=== PATIENT | female | born 1960 | race African-American/Black ===

== ENCOUNTER 2017-04-12 09:18 | Emergency (ER) | payer OTHER ==
[~2017-04-12] VITALS: Ht 162.6 cm; Wt 81.0 kg
[~2017-04-12 09:18] MED LIST: ATEN50TA PO; METF850T2 PO
[2017-04-12 10:27] LABS: GLUCOSE,POINT OF CARE 119 MG/DL (70-110)
[2017-04-12] MEDS ORDERED: IBUPROFEN 600 MG TABLET PO ONE (10:30)
[2017-04-12 10:40] LABS: BASOPHILS # (AUTO) 0.03 K/uL (0.00-0.20); BASOPHILS % (AUTO) 0.5 % (0.0-2.0); EOSINOPHILS % (AUTO) 1.79 % (1.0-6.0); HEMATOCRIT 33.5 % (36-46); LYMPHOCYTES # (AUTO) 1.8 K/uL (1.0-4.8); LYMPHOCYTES % (AUTO) 32.8 % (22.0-44.0); MEAN CORPUSCULAR HEMOGLOBIN 29.7 pg (26.0-34.0); MEAN CORPUSCULAR HGB CONC 32.9 G/dL (31.0-37.0); MEAN CORPUSCULAR VOLUME 90 fL (80-100); MONOCYTES # (AUTO) 0.4 K/uL (0.1-1.0); MONOCYTES % (AUTO) 7.9 % (2.0-9.0); NEUTROPHILS # (AUTO) 3.2 K/uL (1.8-7.7); PLATELET COUNT (AUTO) 176 K/uL (150-450); RED CELL DISTRIBUTION WIDTH 14.2 % (11.5-14.5); WHITE BLOOD COUNT (AUTO) 5.6 K/uL (4.5-11.0)
[2017-04-12 10:49] LABS: ANION GAP 5 mmol/L (8-16); CARBON DIOXIDE 30 mmol/L (22-29); CHLORIDE 106 mmol/L (98-107); CREATININE 0.96 mg/dL (0.60-1.30); GLOMERULAR FILTR. RATE CALC > 60 mL/min (>60); POTASSIUM 3.9 mmol/L (3.5-5.1); SODIUM SERUM 141 mmol/L (136-145); UREA NITROGEN, BLOOD 10 mg/dL (7-18)
[2017-04-12 10:56] LABS: ALANINE AMINOTRANSFERASE 21 U/L (12-78); ALBUMIN 3.6 g/dL (3.4-5.0); ASPARTATE AMINOTRANSFERASE 14 U/L (15-37); BILIRUBIN,TOTAL 0.3 mg/dL (0.1-1.0); TOTAL PROTEIN, SERUM 6.8 g/dL (6.4-8.2)
[2017-04-12 12:49] VITALS: BP 124/62
== END 2017-04-12 12:51 | disposition home or self-care (01) ==
LOC: EMS 09:19
DX: M25.572 Pain in left ankle and joints of left foot (principal); M25.571 Pain in right ankle and joints of right foot; R60.0 Localized edema; F17.210 Nicotine dependence, cigarettes, uncomplicated; E11.9 Type 2 diabetes mellitus without complications; I10 Essential (primary) hypertension
CPT/HCPCS: 82962; 85379; 93971; 99285

== ENCOUNTER 2017-07-21 15:12 | Emergency (ER) | payer OTHER ==
[~2017-07-21] VITALS: Ht 162.6 cm; Wt 77.7 kg
[2017-07-21] MEDS ORDERED: KETOROLAC TROMETHAMINE 60 MG/2 ML VIAL IM ONE (16:30)
[2017-07-21] MEDS ORDERED: HYDROCODONE/ACETAMINOPHEN 10-325 MG TABLET PO ONE (16:30)
[2017-07-21 16:54] VITALS: BP 142/65
[2017-07-21 21:03] LABS: GLUCOSE,POINT OF CARE 204 MG/DL (70-110)
== END 2017-07-21 17:41 | disposition home or self-care (01) ==
LOC: EMS 15:13
DX: S43.401A Unspecified sprain of right shoulder joint, initial encounter (principal); S20.211A Contusion of right front wall of thorax, initial encounter; E11.9 Type 2 diabetes mellitus without complications; I10 Essential (primary) hypertension; F17.210 Nicotine dependence, cigarettes, uncomplicated; W05.0XXA Fall from non-moving wheelchair, initial encounter; Y93.01 Activity, walking, marching and hiking; Y92.89 Other specified places as the place of occurrence of the external cause; Y99.8 Other external cause status
CPT/HCPCS: 71101; 73030; 73562; 82962; 96372; 99284; J1885

== ENCOUNTER 2020-04-30 15:24 | Emergency (ER) | payer OTHER ==
[~2020-04-30] VITALS: Ht 162.6 cm; Wt 77.3 kg
[~2020-04-30 15:24] MED LIST changes: +ATEN-72 PO; -ATEN50TA PO; +METF-445 PO; -METF850T2 PO
[2020-04-30 15:29] VITALS: BP 135/71
[2020-04-30] MEDS ORDERED: LISI-660 PO (15:29)
[2020-04-30] MEDS ORDERED: AMLO-257 PO (15:29)
[2020-04-30] MEDS ORDERED: PERCT PO (15:29)
[2020-04-30] MEDS ORDERED: IBUPROFEN 600 MG TABLET PO ONE (16:45)
[2020-04-30] MEDS ORDERED: CAPSAICIN 0.025% 60 GM CREAM TP ONE (16:45)
[2020-04-30] MEDS ORDERED: LISI-661 PO (16:50)
[2020-04-30] MEDS ORDERED: ALBU8HFA IH (16:50)
[2020-04-30] MEDS ORDERED: AMLO-258 PO (16:50)
[2020-04-30] MEDS ORDERED: METF-960 PO (16:50)
[2020-04-30] MEDS ORDERED: GABA800T9 PO (16:50)
[2020-04-30] MEDS ORDERED: LIDOCAINE 5% TRANSDERMAL PATCH TD ONE (17:00)
== END 2020-04-30 17:10 | disposition home or self-care (01) ==
LOC: EMS 15:30
DX: M25.562 Pain in left knee (principal); E11.65 Type 2 diabetes mellitus with hyperglycemia; I10 Essential (primary) hypertension; F17.210 Nicotine dependence, cigarettes, uncomplicated; Z79.84 Long term (current) use of oral hypoglycemic drugs; Z79.899 Other long term (current) drug therapy

== ENCOUNTER 2023-01-16 09:11 | Emergency (ER) | payer OTHER ==
[~2023-01-16] VITALS: Ht 162.6 cm; Wt 73.6 kg
[~2023-01-16 09:11] MED LIST changes: +ALBU18HF12 IH; +AMLO-258 PO; -ATEN-72 PO; +GABA800T9 PO; +LISI-893 PO; +METF-1211 PO; -METF-445 PO; +PERCT PO
[2023-01-16] MEDS ORDERED: SODIUM CHLORIDE 0.9% 1,000 ML IV ONE ×2 (10:30→12:00)
[2023-01-16] MEDS ORDERED: MORPHINE SULFATE 2 MG/ML SYRINGE IVP ONE (10:30)
[2023-01-16] MEDS ORDERED: ONDANSETRON HCL 4 MG/2 ML VIAL IVP ONE (10:30)
[2023-01-16 10:59] LABS: BASOPHILS % (AUTO) 0.9 % (0.0-2.0); HEMATOCRIT 41.1 % (36-46); HEMOGLOBIN 13.8 g/dL (12.0-16.0); LYMPHOCYTES # (AUTO) 2.9 K/uL (1.0-4.8); LYMPHOCYTES % (AUTO) 40.1 % (22.0-44.0); MEAN CORPUSCULAR HEMOGLOBIN 28.7 pg (26.0-34.0); MEAN CORPUSCULAR HGB CONC 33.5 G/dL (31.0-37.0); MEAN CORPUSCULAR VOLUME 86 fL (80-100); MONOCYTES # (AUTO) 0.5 K/uL (0.1-1.0); MONOCYTES % (AUTO) 7.2 % (2.0-9.0); NEUTROPHILS # (AUTO) 3.6 K/uL (1.8-7.7); NEUTROPHILS % (AUTO) 50.8 % (40.0-70.0); PLATELET COUNT (AUTO) 219 K/uL (150-450); RED CELL DISTRIBUTION WIDTH 14.1 % (11.5-14.5)
[2023-01-16 11:00] LABS: ANION GAP 4 mmol/L (8-16); CALCIUM, TOTAL 10.6 mg/dL (8.8-10.5); CARBON DIOXIDE 31 mmol/L (22-29); CHLORIDE 98 mmol/L (98-107); CREATININE 0.98 mg/dL (0.60-1.30); GLOMERULAR FILTR. RATE CALC > 60 mL/min (>60); GLUCOSE,RANDOM 284 mg/dL (70-110); POTASSIUM 3.8 mmol/L (3.5-5.1); SODIUM SERUM 133 mmol/L (136-145); UREA NITROGEN, BLOOD 23 mg/dL (7-18)
[2023-01-16 11:06] LABS: ALANINE AMINOTRANSFERASE 16 U/L (12-78); ALKALINE PHOSPHATASE 113 U/L (46-116); ASPARTATE AMINOTRANSFERASE 10 U/L (15-37); BILIRUBIN,TOTAL 0.4 mg/dL (0.1-1.0); LIPASE 101 U/L (73-393); TOTAL PROTEIN, SERUM 8.1 g/dL (6.4-8.2)
[2023-01-16 12:07] LABS: APPEARANCE,URINE CLEAR (CLEAR); BILIRUBIN,URINE NEGATIVE (NEGATIVE); GLUCOSE, URINE (UA) >=1000 mg/dL (NEGATIVE); KETONES,URINE NEGATIVE (NEGATIVE); LEUKOCYTE ESTERASE ,URINE NEGATIVE (NEGATIVE); NITRATE,URINE NEGATIVE (NEGATIVE); OCCULT BLOOD,URINE NEGATIVE (NEGATIVE); PH,URINE 5.5 (5.0-8.0); PROTEIN,URINE TRACE mg/dL (NEGATIVE); SPECIFIC GRAVITIY, URINE 1.035 (1.003-1.030); UROBILINOGEN,URINE <=1.0 mg/dL (<=1.0)
[2023-01-16 12:10] LABS: BACTERIA,URINE None Seen /HPF (None Seen); RBC,URINE 0-2 /HPF (0-2); SQUAMOUS EPITHELIAL CELL,UR Few /LPF (None Seen); WBC,URINE 0-2 /HPF (0-5)
[2023-01-16] MEDS ORDERED: SERT-438 PO (12:30)
[2023-01-16] MEDS ORDERED: ATOR40TA71 PO (12:30)
[2023-01-16] MEDS ORDERED: IBUP-1492 PO (12:53)
[2023-01-16] MEDS ORDERED: CYCL-448 PO (12:53)
[2023-01-16 13:31] VITALS: BP 138/72
== END 2023-01-16 13:33 | disposition home or self-care (01) ==
LOC: EMS 09:51
DX: R10.9 Unspecified abdominal pain (principal); E11.65 Type 2 diabetes mellitus with hyperglycemia; E83.52 Hypercalcemia; I10 Essential (primary) hypertension; F17.210 Nicotine dependence, cigarettes, uncomplicated; F10.90 Alcohol use, unspecified, uncomplicated
CPT/HCPCS: 99285; 74176; 96374; 96361; 96375; 80053; 81001; 82962; 83690; 85025; 36415; J2270; J2405; J7030

== ENCOUNTER 2024-01-22 14:52 | Emergency (ER) | payer OTHER ==
[~2024-01-22] VITALS: Ht 162.6 cm; Wt 68.2 kg
[~2024-01-22 14:52] MED LIST changes: +ATOR40TA71 PO; +CYCL-448 PO; +IBUP-1492 PO; -PERCT PO; +SERT-438 PO
[2024-01-22 15:00] VITALS: TEMP 98.7
[2024-01-22 15:15] LABS: GLUCOMETER DEV NAME(LOC) ER.6; GLUCOSE,POINT OF CARE 342 MG/DL (70-110)
[2024-01-22] MEDS: HYDROCODONE/ACETAMINOPHEN 5-325 MG TABLET PO ONE (16:15)
[2024-01-22] MEDS: KETOROLAC TROMETHAMINE 60 MG/2 ML VIAL IM ONE (16:16)
[2024-01-22] MEDS: INSULIN REGULAR, HUMAN 100 UNITS/ML SQ ONE (16:17)
[2024-01-22 18:00] VITALS: BP 142/88; PULSE 84; RESP 16
[2024-01-22] MEDS ORDERED: IBUP-1554 PO (18:19)
== END 2024-01-22 18:27 | disposition home or self-care (01) ==
LOC: EMS 14:52
DX: S39.012A Strain of muscle, fascia and tendon of lower back, initial encounter (principal); E11.65 Type 2 diabetes mellitus with hyperglycemia; I10 Essential (primary) hypertension; F17.210 Nicotine dependence, cigarettes, uncomplicated; V89.2XXA Person injured in unspecified motor-vehicle accident, traffic, initial encounter; Y93.89 Activity, other specified; Y92.89 Other specified places as the place of occurrence of the external cause; Y99.8 Other external cause status
CPT/HCPCS: 99284; 71045; 82962; 72040; 72070; 72100; 96372; J1815; J1885

== ENCOUNTER 2025-03-11 10:55 | Inpatient (IN) | payer OTHER ==
[~2025-03-11] VITALS: Ht 162.6 cm; Wt 74.2 kg
[2025-03-11 08:00] VITALS: PULSE 83
[~2025-03-11 10:55] MED LIST changes: +ASPI-1450 PO; +CARV12 PO; +CEPH-558 PO; -CYCL-448 PO; +GABA-1554 PO; -GABA800T9 PO; -IBUP-1492 PO; +INSU3INS3 SQ; -LISI-893 PO; +LOSA-417 PO; +SPIR-37 PO
[2025-03-11 11:05] VITALS: PULSE 124; RESP 33; O2SAT 100
[2025-03-11] MEDS: ASPIRIN 81 MG CHEWABLE TABLET PO ONE (11:07)
[2025-03-11] MEDS: NITROGLYCERIN 2% (1 GM=INCH) OINTMENT PACKET TP ONE (11:07)
[2025-03-11] MEDS: LORazepam 0.5 MG TABLET PO ONE (11:07)
[2025-03-11 11:18] LABS: BASOPHILS % (AUTO) 0.9 % (0.0-2.0); EOSINOPHILS % (AUTO) 1.4 % (1.0-6.0); HEMATOCRIT 45.1 % (36-46); HEMOGLOBIN 14.4 g/dL (12.0-16.0); LYMPHOCYTES # (AUTO) 5.2 K/uL (1.0-4.8); LYMPHOCYTES % (AUTO) 43.5 % (22.0-44.0); MEAN CORPUSCULAR HEMOGLOBIN 28.4 pg (26.0-34.0); MEAN CORPUSCULAR VOLUME 89 fL (80-100); MONOCYTES # (AUTO) 0.8 K/uL (0.1-1.0); MONOCYTES % (AUTO) 6.5 % (2.0-9.0); NEUTROPHILS # (AUTO) 5.7 K/uL (1.8-7.7); NEUTROPHILS % (AUTO) 47.7 % (40.0-70.0); PLATELET COUNT (AUTO) 174 K/uL (150-450); RED BLOOD CELL COUNT(AUTO) 5.08 MIL/uL (4.00-5.20); RED CELL DISTRIBUTION WIDTH 14.9 % (11.5-14.5); WHITE BLOOD COUNT (AUTO) 11.9 K/uL (4.5-11.0)
[2025-03-11] MEDS: NITROPRUSSIDE SODIUM 50 MG in DEXTROSE 5%-WATER 248 ML IV PRN (11:23)
[2025-03-11 11:27] LABS: ANION GAP 12 mmol/L (8-16); CALCIUM, TOTAL 9.5 mg/dL (8.8-10.5); CARBON DIOXIDE 27 mmol/L (22-29); CHLORIDE 103 mmol/L (98-107); CREATININE 1.03 mg/dL (0.60-1.30); GLOMERULAR FILTR. RATE CALC > 60 mL/min (>60); GLUCOSE,RANDOM 245 mg/dL (70-110); POTASSIUM 3.5 mmol/L (3.5-5.1); SODIUM SERUM 142 mmol/L (136-145); UREA NITROGEN, BLOOD 11 mg/dL (7-18)
[2025-03-11 11:33] LABS: CREATINE KINASE, TOTAL ONLY 53 U/L (26-192)
[2025-03-11 11:35] LABS: PROTHROMBIN TIME 10.7 SEC (9.4-11.6)
[2025-03-11 11:36] LABS: TROPONIN I-HIGH SENSITIVITY 156 ng/L (<51)
[2025-03-11 11:38] LABS: B-TYPE NATRIURETIC PEPTIDE 547 pg/mL (0-100)
[2025-03-11 11:51] LABS: PLATELET MORPHOLOGY COMMENT LARGE PLTS PRESENT
[2025-03-11] MEDS: FUROSEMIDE 20 MG/2 ML VIAL IVP ONE ×2 (12:04)
[2025-03-11] MEDS ORDERED: LORazepam 2 MG/ML VIAL IVP PRN (12:15)
[2025-03-11] MEDS ORDERED: ACETAMINOPHEN 325 MG TABLET PO PRN (12:15)
[2025-03-11] MEDS ORDERED: ONDANSETRON HCL 4 MG/2 ML VIAL IVP PRN (12:15)
[2025-03-11] MEDS ORDERED: OxyCODONE HCL/ACETAMINOPHEN 5-325 MG TABLET PO PRN (12:15)
[2025-03-11] MEDS ORDERED: DEXTROSE 50%-WATER 25 GM/50 ML SYRINGE IVP PRN (12:15)
[2025-03-11] MEDS ORDERED: CloNIDine HCL 0.1 MG TABLET PO PRN (12:30)
[2025-03-11] MEDS: AmLODIPine BESYLATE 10 MG TABLET PO SCH (12:43)
[2025-03-11 14:18] LABS: APPEARANCE,URINE CLEAR (CLEAR); BILIRUBIN,URINE NEGATIVE (NEGATIVE); COLOR,URINE COLORLESS (YELLOW); GLUCOSE, URINE (UA) 300-500 mg/dL (NEGATIVE); KETONES,URINE NEGATIVE (NEGATIVE); LEUKOCYTE ESTERASE ,URINE NEGATIVE (NEGATIVE); NITRATE,URINE NEGATIVE (NEGATIVE); OCCULT BLOOD,URINE NEGATIVE (NEGATIVE); PH,URINE 6.5 (5.0-8.0); PROTEIN,URINE 30-70 mg/dL (NEGATIVE); SPECIFIC GRAVITIY, URINE 1.007 (1.003-1.030); UROBILINOGEN,URINE <=1.0 mg/dL (<=1.0)
[2025-03-11 14:20] LABS: PH,URINE DRUG SCREEN 6.5 (5.0-8.0)
[2025-03-11 14:25] LABS: ALCOHOL, URINE DRUG SCREEN NEGATIVE (NEGATIVE); AMPHET/METH SCREEN,URINE NEGATIVE (NEGATIVE); BACTERIA,URINE None Seen /HPF (None Seen); BARBITURATE SCREEN, URINE NEGATIVE (NEGATIVE); BENZODIAZEPINES SCREEN,URINE NEGATIVE (NEGATIVE); CANNABINOID SCREEN,URINE NEGATIVE (NEGATIVE); COCAINE SCREEN,URINE POSITIVE (NEGATIVE); METHADONE SCREEN, URINE NEGATIVE (NEGATIVE); OPIATE SCREEN,URINE NEGATIVE (NEGATIVE); PHENCYCLIDINE SCREEN,URINE NEGATIVE (NEGATIVE); RBC,URINE None Seen /HPF (0-2); SQUAMOUS EPITHELIAL CELL,UR Few /LPF (None Seen); WBC,URINE None Seen /HPF (0-5)
[2025-03-11 16:00] VITALS: BP 160/83; PULSE 85; RESP 16; TEMP 98.1; O2SAT 96
[2025-03-11] MEDS: HEPARIN SODIUM,PORCINE 5,000 UNITS/ML VIAL SQ SCH (18:23)
[2025-03-11] MEDS: INSULIN LISPRO 100 UNITS/ML SQ PRN (18:24)
[2025-03-11 19:01] VITALS: PULSE 83
[2025-03-11 20:00] VITALS: BP 140/77; PULSE 78; RESP 17; TEMP 98.4; O2SAT 100
[2025-03-11 20:00] LABS: GLUCOMETER DEV NAME(LOC) ICUN.5; GLUCOSE,POINT OF CARE 289 MG/DL (70-110)
[2025-03-11] MEDS: DOCUSATE SODIUM 100 MG CAPSULE PO SCH (21:00)
[2025-03-11] MEDS: CHLORHEXIDINE GLUCONATE 2% TOWELETTE [2'S/6'S] TP SCH (21:18)
[2025-03-11 21:40] LABS: GLUCOMETER DEV NAME(LOC) ICU.S6; GLUCOSE,POINT OF CARE 213 MG/DL (70-110)
[2025-03-12] VITALS (7 sets, daily range): BP systolic 132–189; BP diastolic 72–134; PULSE 62–82; RESP 14–25; TEMP 97.7–98.5; O2SAT 96–100
[2025-03-12] MEDS: HydrALAZINE HCL 20 MG/ML VIAL IVP PRN (04:53)
[2025-03-12 06:10] LABS: BASOPHILS % (AUTO) 0.5 % (0.0-2.0); EOSINOPHILS % (AUTO) 1.7 % (1.0-6.0); HEMATOCRIT 39.9 % (36-46); HEMOGLOBIN 13.4 g/dL (12.0-16.0); LYMPHOCYTES # (AUTO) 2.1 K/uL (1.0-4.8); LYMPHOCYTES % (AUTO) 34.3 % (22.0-44.0); MEAN CORPUSCULAR HEMOGLOBIN 28.9 pg (26.0-34.0); MEAN CORPUSCULAR HGB CONC 33.7 G/dL (31.0-37.0); MEAN CORPUSCULAR VOLUME 86 fL (80-100); MONOCYTES # (AUTO) 0.4 K/uL (0.1-1.0); MONOCYTES % (AUTO) 7.2 % (2.0-9.0); NEUTROPHILS # (AUTO) 3.5 K/uL (1.8-7.7); NEUTROPHILS % (AUTO) 56.3 % (40.0-70.0); PLATELET COUNT (AUTO) 144 K/uL (150-450); RED BLOOD CELL COUNT(AUTO) 4.65 MIL/uL (4.00-5.20); RED CELL DISTRIBUTION WIDTH 14.2 % (11.5-14.5); WHITE BLOOD COUNT (AUTO) 6.2 K/uL (4.5-11.0)
[2025-03-12 06:28] LABS: ANION GAP 8 mmol/L (8-16); CALCIUM, TOTAL 9.6 mg/dL (8.8-10.5); CARBON DIOXIDE 28 mmol/L (22-29); CHLORIDE 103 mmol/L (98-107); CREATININE 0.79 mg/dL (0.60-1.30); GLOMERULAR FILTR. RATE CALC > 60 mL/min (>60); GLUCOSE,RANDOM 178 mg/dL (70-110); POTASSIUM 3.3 mmol/L (3.5-5.1); SODIUM SERUM 139 mmol/L (136-145); UREA NITROGEN, BLOOD 8 mg/dL (7-18)
[2025-03-12 06:50] LABS: GLUCOMETER DEV NAME(LOC) ICUN.5; GLUCOSE,POINT OF CARE 192 MG/DL (70-110)
[2025-03-12] MEDS ORDERED: POTASSIUM CHL 10 MEQ/WATER 50 ML IV PRN (09:00)
[2025-03-12] MEDS: ASPIRIN 81 MG CHEWABLE TABLET PO SCH (09:00)
[2025-03-12] MEDS: FAMOTIDINE 20 MG TABLET PO SCH (09:00)
[2025-03-12] MEDS: FUROSEMIDE 20 MG TABLET PO SCH (11:27)
[2025-03-12] MEDS: LOSARTAN POTASSIUM 50 MG TABLET PO SCH (11:27)
[2025-03-12] MEDS: POTASSIUM CHLORIDE 20 MEQ ER TABLET PO PRN (11:29)
[2025-03-12 12:35] LABS: GLUCOMETER DEV NAME(LOC) ICUN.5; GLUCOSE,POINT OF CARE 328 MG/DL (70-110)
[2025-03-12 18:05] LABS: GLUCOMETER DEV NAME(LOC) ICUN.5; GLUCOSE,POINT OF CARE 235 MG/DL (70-110)
[2025-03-13 03:56] LABS: GLUCOMETER DEV NAME(LOC) ICU.S6; GLUCOSE,POINT OF CARE 230 MG/DL (70-110)
[2025-03-13 04:24] VITALS: BP 157/81; PULSE 73; RESP 18; TEMP 98.1; O2SAT 97
[2025-03-13 05:31] LABS: GLUCOMETER DEV NAME(LOC) 5N.1D; GLUCOSE,POINT OF CARE 236 MG/DL (70-110)
[2025-03-13 07:06] LABS: MAGNESIUM 1.7 mg/dL (1.80-2.40)
[2025-03-13 07:10] LABS: HEMOGLOBIN A1C 11.1 % (3.8-5.6)
[2025-03-13 07:45] VITALS: BP 145/88; PULSE 75; RESP 18; TEMP 98.3; O2SAT 98
[2025-03-13] MEDS: MAGNESIUM OXIDE 400 MG TABLET PO ONE (12:03)
[2025-03-13 12:40] LABS: GLUCOMETER DEV NAME(LOC) 5N.2C; GLUCOSE,POINT OF CARE 320 MG/DL (70-110)
[2025-03-13 12:47] VITALS: BP 140/87; PULSE 82; RESP 18; TEMP 98.2; O2SAT 98
== END 2025-03-13 13:50 | disposition home or self-care (01) | DRG 194 ==
LOC: EMS 10:55 → EDH 12:49 → ICU 14:48 → 5S 03-12 22:35
PROVIDERS: ADMIT Internal Medicine; ATTEND Internal Medicine
PROC: 5A09357 Assistance with Respiratory Ventilation, Less than 24 Consecutive Hours, Continuous Positive Airway Pressure (ICD-10-PCS; principal; 2025-03-11)
DX: I11.0 Hypertensive heart disease with heart failure (principal); J96.01 Acute respiratory failure with hypoxia; I24.89 Other forms of acute ischemic heart disease; I50.43 Acute on chronic combined systolic (congestive) and diastolic (congestive) heart failure; I16.1 Hypertensive emergency; I34.0 Nonrheumatic mitral (valve) insufficiency; J43.9 Emphysema, unspecified; F17.210 Nicotine dependence, cigarettes, uncomplicated; E11.65 Type 2 diabetes mellitus with hyperglycemia; F14.10 Cocaine abuse, uncomplicated; Z79.899 Other long term (current) drug therapy; Z91.199 Patient's noncompliance with other medical treatment and regimen due to unspecified reason
CPT/HCPCS: 71045; 80048; 80307; 81001; 82550; 82962; 83036; 83735; 83880; 84100; 84132; 84484; 85025; 85610; 85730; 87081; 93005; 94660; 96365; 96375; 99291; J0360; J1644; J1940; J3490; J7060; 36415-L1; 36415-TC